=== PATIENT | male | born 1945 | race Caucasian/White ===

== ENCOUNTER 2022-10-08 13:28 | Emergency (ER) | payer MEDICARE, BC ==
[2022-10-08] MEDS ORDERED: Ondansetron PF 4 MG/2 ML Vial ONE (14:35)
[2022-10-08 14:45] LABS: #Monocytes 0.2 10x3/uL (0.0-1.1); #Neutrophils 2.9 10x3/uL (1.5-8.4); %Basophils 0.3 % (0.0-2.0); %Lymphocytes 6.7 % (18.0-47.0); %Monocytes 5.8 % (0.0-10.0); %Neutrophils 87.2 % (40.0-75.0); Hemoglobin 9.3 g/dL (13.5-17.5); Mean Corpuscular HGB CONC 32.9 g/dL (32.0-36.0); Mean Corpuscular Hemoglobin 34.4 pg (27.0-33.0); Mean Corpuscular Volume 104.8 fl (81.2-95.1); Mean Platelet Volume 9.4 fl (7.4-10.4); Platelet Count 201 10x3/uL (150-450); White Blood Cell (WBC) Count 3.3 10x3/uL (3.5-10.5)
[2022-10-08 14:54] LABS: Bilirubin Neg (Negative); Blood, Urine Negative (Negative); Clarity Clear (Clear); Glucose, Urine (Dipstick) Normal (Negative); Ketone, Urine 15 mg/dL (Negative); Leukocyte Negative (Negative); Nitrite Negative (Negative); Protein, Urine (Dipstick) 15 mg/dl (Neg-Trace); Specific Gravity, Urine 1.015 (1.005-1.030); Urobilinogen Normal mg/dL (Less than 2)
[2022-10-08 14:56] LABS: ALT (SGPT) 15 U/L (8-55); AST (SGOT) 13 U/L (5-34); Albumin 3.9 g/dL (3.4-4.8); Alkaline Phosphatase 67 U/L (40-110); Anion Gap 14 mmol/L (10-20); BUN (Urea Nitrogen) 31 mg/dL (8.4-25.7); Bilirubin, Total 0.7 mg/dL (0.2-1.2); Calc. Creatinine Clearance 0 mL/min (70-130); Calcium 8.8 mg/dL (7.8-10.44); Carbon Dioxide 23 mmol/L (23-31); Chloride 106 mmol/L (98-107); Estimated GFR 65; Globulin 2.6 g/dL (2.4-3.5); Glucose 104 mg/dL (83-110); Lipase 15 U/L (8-78); Potassium 4.2 mmol/L (3.5-5.1); Protein, Total 6.5 g/dL (5.8-8.1); Sodium 139 mmol/L (136-145)
[2022-10-08] MEDS ORDERED: Iopamidol 300 61% 100 ML VIAL FS ONE (18:14)
== END 2022-10-08 17:13 | disposition home or self-care (01) ==
LOC: CSHERS 13:28
DX: K57.32 Diverticulitis of large intestine without perforation or abscess without bleeding (principal); K52.9 Noninfective gastroenteritis and colitis, unspecified; I11.0 Hypertensive heart disease with heart failure; I50.9 Heart failure, unspecified; E11.9 Type 2 diabetes mellitus without complications; E78.5 Hyperlipidemia, unspecified
CPT/HCPCS: 36415; 71045; 74177; 80053; 81003; 83690; 84484; 85025; 86850; 86900; 86901; 93005; 96361; 96374; J2405; Q9967

== ENCOUNTER 2022-10-09 12:23 | Emergency (ER) | payer MEDICARE, BC ==
[2022-10-09] MEDS ORDERED: Ondansetron PF 4 MG/2 ML Vial ONE (12:47)
[2022-10-09 13:01] LABS: Hemoglobin 8.7 g/dL (13.5-17.5); Mean Corpuscular Hemoglobin 34.3 pg (27.0-33.0); Mean Corpuscular Volume 103.9 fl (81.2-95.1); Mean Platelet Volume 9.9 fl (7.4-10.4); Platelet Count 225 10x3/uL (150-450); Red Blood Cell (RBC) Count 2.54 10x6/uL (4.32-5.72); White Blood Cell (WBC) Count 8.3 10x3/uL (3.5-10.5)
[2022-10-09 13:02] LABS: MDiff Complete? YES
[2022-10-09 13:36] LABS: Manual Diff?? YES
[2022-10-09 13:37] LABS: ALT (SGPT) 16 U/L (8-55); AST (SGOT) 17 U/L (5-34); Albumin 3.9 g/dL (3.4-4.8); Alkaline Phosphatase 63 U/L (40-110); Anion Gap 20 mmol/L (10-20); BUN (Urea Nitrogen) 51 mg/dL (8.4-25.7); Bilirubin, Total 0.5 mg/dL (0.2-1.2); Calc. Creatinine Clearance 0 mL/min (70-130); Carbon Dioxide 24 mmol/L (23-31); Chloride 102 mmol/L (98-107); Estimated GFR 25; Globulin 2.8 g/dL (2.4-3.5); Glucose 155 mg/dL (83-110); Potassium 4.8 mmol/L (3.5-5.1); Protein, Total 6.7 g/dL (5.8-8.1); Sodium 141 mmol/L (136-145)
[2022-10-09 13:42] LABS: CKMB 2.2 ng/mL (0-6.6)
[2022-10-09] MEDS ORDERED: metroNIDAZOLE 500 MG/100 ML BAG ONE (13:46)
[2022-10-09] MEDS ORDERED: cefTRIAXone\\ROCEPHIN 2 GM VIAL ONE (13:46)
[2022-10-09 13:52] LABS: Band 35 % (5-11); Lymphocytes 10 % (21-51); Monocytes 11 % (0-10); Neutrophil 44 % (42-75)
[2022-10-09 13:54] LABS: Anisocytosis SLIGHT = 6-15 cells (100X) (0-5/hpf); Hypochromia SLIGHT = 6-15 cells (100X) (0-5/hpf); Macrocytosis SLIGHT = 6-15 cells (100X) (0-5/hpf); Microcytosis SLIGHT = 6-15 cells (100X) (0-5/hpf); Platelet Morphology Comment Appears Adequate
[2022-10-09 13:55] LABS: Dohle Bodies SLIGHT; Toxic Granulation SLIGHT
[2022-10-09] MEDS ORDERED: Sodium Chloride 0.9% 1,000 ML IV SCH (14:30)
[2022-10-09] MEDS ORDERED: Ondansetron ODT 4 MG TAB PO PRN (14:30)
[2022-10-09] MEDS ORDERED: Acetaminophen 325 MG TAB PO PRN (14:30)
[2022-10-09] MEDS ORDERED: Ondansetron PF 4 MG/2 ML Vial IVP PRN (14:30)
[2022-10-09] MEDS ORDERED: Morphine 2 MG/ML VIAL SLOW IVP PRN (14:33)
[2022-10-09] MEDS ORDERED: Morphine 4 MG/ML VIAL SLOW IVP PRN (14:34)
[2022-10-09] MEDS ORDERED: Metoclopramide HCl 10 MG/2 ML VIAL ONE (14:42)
[2022-10-09] MEDS ORDERED: cefTRIAXone\\ROCEPHIN 500 MG in Sodium Chloride 0.9% 0 ML IVPB SCH (14:45)
[2022-10-09] MEDS ORDERED: Morphine 2 MG/ML VIAL ONE (15:51)
[2022-10-09] MEDS ORDERED: Lidocaine Viscous Sol 2% 15 ml UD Cup ONE (16:24)
[2022-10-09] MEDS ORDERED: Lorazepam 2 MG/ML VIAL ONE (16:49)
[2022-10-09] MEDS ORDERED: Pantoprazole 40 MG VIAL ONE (17:30)
[2022-10-09 18:23] LABS: CKMB 2.8 ng/mL (0-6.6)
[2022-10-09] MEDS ORDERED: metroNIDAZOLE 500 MG in Premix Bag 1 BAG IVPB SCH (22:00)
== END 2022-10-09 19:13 | disposition short-term general hospital (02) ==
LOC: CSHERS 12:23
DX: K56.609 Unspecified intestinal obstruction, unspecified as to partial versus complete obstruction (principal); R77.8 Other specified abnormalities of plasma proteins; E78.5 Hyperlipidemia, unspecified; I11.0 Hypertensive heart disease with heart failure; I50.9 Heart failure, unspecified; E11.9 Type 2 diabetes mellitus without complications
CPT/HCPCS: 36415; 74176; 80053; 82553; 83605; 83735; 84484; 85025; 93005; 96361; 96365; 96367; 96368; 96375; C9113; J0696; J2060; J2272; J2405; J2765